=== PATIENT | female | born 1940 | race Caucasian/White ===

== ENCOUNTER 2024-08-07 17:54 | Observation (INO) | payer OTHER ==
[2024-08-07] MEDS ORDERED: ACETAMINOPHEN 325 MG TABLET (FP) ONE (19:29)
[2024-08-07] MEDS ORDERED: DIPHTH,PERTUSS(ACELL),TET 0.5 ML DISP.SYRIN IM ONE (19:29)
[2024-08-07] MEDS: DIPHTH,PERTUSS(ACELL),TET 0.5 ML DISP.SYRIN IM ONE (19:36)
[2024-08-07] MEDS: ACETAMINOPHEN 325 MG TABLET (FP) PO ONE (19:37)
[2024-08-07 20:23] LABS: ABSOLUTE IMMATURE GRANULOCYTES 0.03 x10^3/uL (0.0-0.031); BASOPHILS # 0.03 x10^3/uL (0.01-0.08); EOSINOPHIL % 0.7 % (0.7-5.8); EOSINOPHILS # 0.06 x10^3/uL (0.04-0.36); HEMATOCRIT 37.4 % (34.1-44.9); HEMOGLOBIN 12.4 g/dL (11.2-15.7); MCHC 33.2 g/dl (32.2-35.5); MEAN CELL VOLUME 92.6 fl (79.4-94.8); MEAN PLT VOLUME 9.9 fl (9.4-12.3); MONOCYTE # 0.35 x10^3/uL (0.24-0.86); MONOCYTE % 4.2 % (4.7-12.5); PLATELET COUNT 217 x10^3/uL (182-369); RDW 13.1 % (12.5-17.0)
[2024-08-07 20:25] LABS: INR 0.96 (0.83-1.09); PROTHROMBIN TIME (PATIENT) 10.6 SEC (9.7-13.0)
[2024-08-07 20:32] LABS: POTASSIUM 4.4 mmol/L (3.5-5.1)
[2024-08-07 20:34] LABS: CALCIUM 9.1 mg/dL (8.5-10.1)
[2024-08-07 20:36] LABS: ALBUMIN 3.2 g/dl (3.4-5.0); BLOOD UREA NITROGEN 23.8 mg/dL (7-18)
[2024-08-07 20:39] LABS: BILIRUBIN,TOTAL 0.3 mg/dL (0.2-1)
[2024-08-07] MEDS ORDERED: ACETAMINOPHEN 325 MG TABLET (FP) PO PRN (23:36)
[2024-08-08] MEDS: SODIUM CHLORIDE 1,000 ML IV SCH (01:29)
[2024-08-08 02:12] VITALS: BMI 19.6
[2024-08-08 07:19] LABS: ABSOLUTE IMMATURE GRANULOCYTES 0.02 x10^3/uL (0.0-0.031); BASOPHILS # 0.03 x10^3/uL (0.01-0.08); EOSINOPHIL % 1.3 % (0.7-5.8); EOSINOPHILS # 0.09 x10^3/uL (0.04-0.36); HEMATOCRIT 37.9 % (34.1-44.9); HEMOGLOBIN 12.8 g/dL (11.2-15.7); MCHC 33.8 g/dl (32.2-35.5); MEAN CELL VOLUME 91.1 fl (79.4-94.8); MEAN PLT VOLUME 9.6 fl (9.4-12.3); MONOCYTE % 5.7 % (4.7-12.5); PLATELET COUNT 217 x10^3/uL (182-369)
[2024-08-08 07:34] LABS: POTASSIUM 4.8 mmol/L (3.5-5.1)
[2024-08-08 07:38] LABS: ALBUMIN 3.4 g/dl (3.4-5.0); BLOOD UREA NITROGEN 17.3 mg/dL (7-18); CALCIUM 9.3 mg/dL (8.5-10.1); MAGNESIUM 2.1 mg/dL (1.8-2.4)
[2024-08-08 07:40] LABS: CREATININE 0.9 mg/dL (0.55-1.3)
[2024-08-08 07:43] LABS: BILIRUBIN,TOTAL 0.5 mg/dL (0.2-1); TOT PROT 6.1 g/dl (6.4-8.2)
[2024-08-08] MEDS: CYANOCOBALAMIN 1,000 MCG TABLET (FP) PO SCH (12:12)
[2024-08-08] MEDS: LIDOCAINE 4% PATCH TP SCH (12:14)
[2024-08-08] MEDS: LIDOCAINE PATCH REMOVAL MC SCH (21:07)
[2024-08-08] MEDS: DONEPEZIL HCL 5 MG TABLET (FP) PO SCH (21:07)
[2024-08-09 14:49] VITALS: BP 93/71; PULSE 89; RESP 18; TEMP 97.9
[2024-08-09] MEDS: hydrOXYzine HCL 100 MG/2 ML VIAL IM ONE (17:35)
== END 2024-08-09 19:57 ==
LOC: JER 17:54 → JERBED 23:08 → J4S 08-08 00:53
PROVIDERS: ADMIT Hospitalist; ATTEND Internal Medicine
PROC: 3E0234Z Introduction of Serum, Toxoid and Vaccine into Muscle, Percutaneous Approach (ICD-10-PCS; principal; 2024-08-07)
DX: S42.301A Unspecified fracture of shaft of humerus, right arm, initial encounter for closed fracture (principal); F03.90 Unspecified dementia, unspecified severity, without behavioral disturbance, psychotic disturbance, mood disturbance, and anxiety; W18.39XA Other fall on same level, initial encounter; Y93.89 Activity, other specified; E78.5 Hyperlipidemia, unspecified; I10 Essential (primary) hypertension; Y92.238 Other place in hospital as the place of occurrence of the external cause; Z95.0 Presence of cardiac pacemaker; Z23 Encounter for immunization
CPT/HCPCS: 36415; 70450-TC; 70486-TC; 71045-TC-FY; 72125-TC; 72170-TC-FY; 73030-TC-RT-FY; 73060-TC-RT-FY; 73070-TC-RT-FY; 80053; 82607; 82746; 83735; 84100; 84484; 85025; 85610; 85730; 86850; 86900; 86901; 90471; 90715; 93005; 93010; 93306-TC; 93880-TC; 97116-GP; 97161-GP; 99285-25; G0378